=== PATIENT | male | born 1945 | race Caucasian/White ===

== ENCOUNTER 2019-09-13 07:16 | Inpatient (IN) | payer MEDICARE, OTHER ==
[~2019-09-13] VITALS: Ht 182.9 cm; Wt 136.6 kg
[2019-09-13] MEDS ORDERED: SODIUM CHLORIDE 0.9% 1,000 ML IV ONE ×2 (07:47→13:45)
[2019-09-13 07:51] LABS: GLUCOSE,POINT OF CARE 185 MG/DL (70-110)
[2019-09-13] MEDS ORDERED: ACETAMINOPHEN 500 MG TABLET PO ONE (08:00)
[2019-09-13] MEDS ORDERED: ONDANSETRON HCL 4 MG/2 ML VIAL IVP ONE (08:00)
[2019-09-13 08:53] LABS: BASOPHILS % (AUTO) 0.4 % (0.0-2.0); EOSINOPHILS % (AUTO) 0.1 % (1.0-6.0); HEMATOCRIT 39.4 % (41-53); HEMOGLOBIN 12.1 g/dL (13.5-17.5); LYMPHOCYTES # (AUTO) 0.3 K/uL (1.0-4.8); LYMPHOCYTES % (AUTO) 1.6 % (22.0-44.0); MEAN CORPUSCULAR HEMOGLOBIN 22.5 pg (26.0-34.0); MEAN CORPUSCULAR HGB CONC 30.8 G/dL (31.0-37.0); MEAN CORPUSCULAR VOLUME 73 fL (80-100); MONOCYTES # (AUTO) 0.6 K/uL (0.1-1.0); MONOCYTES % (AUTO) 3.9 % (2.0-9.0); NEUTROPHILS # (AUTO) 15.5 K/uL (1.8-7.7); PLATELET COUNT (AUTO) 165 K/uL (150-450); RED BLOOD CELL COUNT(AUTO) 5.38 MIL/uL (4.50-5.90)
[2019-09-13 09:15] LABS: APPEARANCE,URINE CLEAR (CLEAR); GLUCOSE, URINE (UA) 100 mg/dL (NEGATIVE); KETONES,URINE 15 mg/dL (NEGATIVE); LEUKOCYTE ESTERASE ,URINE NEGATIVE (NEGATIVE); NITRATE,URINE NEGATIVE (NEGATIVE); OCCULT BLOOD,URINE NEGATIVE (NEGATIVE); PROTEIN,URINE SEE CONFIRM (NEGATIVE)
[2019-09-13 09:16] LABS: BILIRUBIN,URINE PRELIM. POSITIVE (NEGATIVE)
[2019-09-13 09:17] LABS: INR 1.2 (0.9-1.1); PROTHROMBIN TIME 11.9 SEC (9.4-11.6)
[2019-09-13 09:26] LABS: ALBUMIN 3.8 g/dL (3.4-5.0); BACTERIA,URINE None Seen /HPF (None Seen); BILIRUBIN,TOTAL 0.6 mg/dL (0.1-1.0); CALCIUM, TOTAL 8.5 mg/dL (8.8-10.5); CREATININE 1.25 mg/dL (0.60-1.30); POTASSIUM 3.6 mmol/L (3.5-5.1); RBC,URINE None Seen /HPF (0-2); SQUAMOUS EPITHELIAL CELL,UR Few /LPF (None Seen); SULFOSALICYLIC ACID,URINE 1+ (Negative); TOTAL PROTEIN, SERUM 8.3 g/dL (6.4-8.2); WBC,URINE 0-2 /HPF (0-5)
[2019-09-13 09:34] LABS: INFLUENZA TYPE A NEGATIVE FOR TYPE A (NEGATIVE); INFLUENZA TYPE B NEGATIVE FOR TYPE B (NEGATIVE)
[2019-09-13] MEDS ORDERED: ONDANSETRON HCL 4 MG/2 ML VIAL IVP PRN (13:30)
[2019-09-13] MEDS ORDERED: ACETAMINOPHEN 325 MG TABLET PO PRN (13:30)
[2019-09-13] MEDS ORDERED: DEXTROSE 50%-WATER 25 GM/50 ML SYRINGE IVP PRN (13:45)
[2019-09-13] MEDS: ACETAMINOPHEN 325 MG TABLET PO PRN ×2 (14:30→21:03)
[2019-09-13] MEDS: CefTRIAXone 1 GM/DEXTROSE 50 ML IV SCH (14:52)
[2019-09-13] MEDS: AZITHROMYCIN 500 MG/NS 250 ML IV SCH (15:14)
[2019-09-13] MEDS: HEPARIN SODIUM,PORCINE 5,000 UNITS/ML VIAL SQ SCH ×2 (15:15→23:34)
[2019-09-13 17:02] VITALS: BP 151/95
[2019-09-13 21:01] VITALS: BP 152/83
[2019-09-13] MEDS: DOCUSATE SODIUM 100 MG CAPSULE PO SCH (21:02)
[2019-09-13] MEDS: INSULIN LISPRO 100 UNITS/ML SQ PRN (22:19)
[2019-09-14] VITALS (7 sets, daily range): BP systolic 119–153; BP diastolic 73–100
[2019-09-14] MEDS: ACETAMINOPHEN 325 MG TABLET PO PRN ×2 (05:13→23:16)
[2019-09-14 06:07] LABS: GLUCOMETER DEV NAME(LOC) 5S.2A; GLUCOSE,POINT OF CARE 217 MG/DL (70-110)
[2019-09-14 06:07] LABS: GLUCOMETER DEV NAME(LOC) 5S.2A; GLUCOSE,POINT OF CARE 189 MG/DL (70-110)
[2019-09-14] MEDS: DOCUSATE SODIUM 100 MG CAPSULE PO SCH ×2 (08:24→20:10)
[2019-09-14] MEDS: HEPARIN SODIUM,PORCINE 5,000 UNITS/ML VIAL SQ SCH ×3 (08:24→23:16)
[2019-09-14] MEDS: FAMOTIDINE 20 MG TABLET PO SCH (08:24)
[2019-09-14 09:30] LABS: BASOPHILS % (AUTO) 0.2 % (0.0-2.0); EOSINOPHILS % (AUTO) 0 % (1.0-6.0); HEMATOCRIT 34.7 % (41-53); HEMOGLOBIN 10.7 g/dL (13.5-17.5); LYMPHOCYTES # (AUTO) 0.4 K/uL (1.0-4.8); LYMPHOCYTES % (AUTO) 3.3 % (22.0-44.0); MEAN CORPUSCULAR HEMOGLOBIN 22.4 pg (26.0-34.0); MEAN CORPUSCULAR HGB CONC 30.9 G/dL (31.0-37.0); MEAN CORPUSCULAR VOLUME 73 fL (80-100); MONOCYTES # (AUTO) 0.2 K/uL (0.1-1.0); MONOCYTES % (AUTO) 2.1 % (2.0-9.0); PLATELET COUNT (AUTO) 165 K/uL (150-450); RED BLOOD CELL COUNT(AUTO) 4.77 MIL/uL (4.50-5.90); RED CELL DISTRIBUTION WIDTH 18.9 % (11.5-14.5)
[2019-09-14 09:36] LABS: NEUTROPHILS % (AUTO) 94.4 % (40.0-70.0)
[2019-09-14 09:51] LABS: CALCIUM, TOTAL 7.8 mg/dL (8.8-10.5); CREATININE 1.33 mg/dL (0.60-1.30); POTASSIUM 3.1 mmol/L (3.5-5.1)
[2019-09-14] MEDS ORDERED: SODIUM CHLORIDE 0.9% 1,000 ML IV ONE (10:45)
[2019-09-14] MEDS ORDERED: POTASSIUM CHLORIDE 20 MEQ ER TABLET PO ONE (10:45)
[2019-09-14] MEDS: INSULIN LISPRO 100 UNITS/ML SQ PRN ×2 (12:50→20:21)
[2019-09-14] MEDS: CefTRIAXone 1 GM/DEXTROSE 50 ML IV SCH (14:04)
[2019-09-14] MEDS: AZITHROMYCIN 500 MG/NS 250 ML IV SCH (14:52)
[2019-09-14 16:41] LABS: GLUCOMETER DEV NAME(LOC) 5S.2A; GLUCOSE,POINT OF CARE 157 MG/DL (70-110)
[2019-09-14 17:11] LABS: GLUCOMETER DEV NAME(LOC) 5S.1; GLUCOSE,POINT OF CARE 97 MG/DL (70-110)
[2019-09-14 17:11] LABS: GLUCOMETER DEV NAME(LOC) 5S.1; GLUCOSE,POINT OF CARE 148 MG/DL (70-110)
[2019-09-15 04:00] VITALS: BP 157/83
[2019-09-15 06:42] LABS: ANION GAP 7 mmol/L (8-16); CARBON DIOXIDE 28 mmol/L (22-29); CHLORIDE 103 mmol/L (98-107); CREATININE 1.16 mg/dL (0.60-1.30); GLUCOSE,RANDOM 99 mg/dL (70-110); POTASSIUM 3.8 mmol/L (3.5-5.1); SODIUM SERUM 138 mmol/L (136-145); UREA NITROGEN, BLOOD 29 mg/dL (7-18)
[2019-09-15 06:46] LABS: GLOMERULAR FILTR. RATE CALC > 60 mL/min (>60)
[2019-09-15 07:50] VITALS: BP 152/105
[2019-09-15] MEDS: HEPARIN SODIUM,PORCINE 5,000 UNITS/ML VIAL SQ SCH ×2 (08:55→15:24)
[2019-09-15] MEDS: DOCUSATE SODIUM 100 MG CAPSULE PO SCH (08:56)
[2019-09-15] MEDS: FAMOTIDINE 20 MG TABLET PO SCH (08:56)
[2019-09-15 09:04] VITALS: BP 135/78
[2019-09-15] MEDS ORDERED: CARVEDILOL 6.25 MG TABLET PO SCH (11:15)
[2019-09-15 12:07] VITALS: BP 146/100
[2019-09-15 12:31] LABS: GLUCOMETER DEV NAME(LOC) 5S.1; GLUCOSE,POINT OF CARE 109 MG/DL (70-110)
[2019-09-15 12:31] LABS: GLUCOMETER DEV NAME(LOC) 5S.1; GLUCOSE,POINT OF CARE 139 MG/DL (70-110)
[2019-09-15] MEDS ORDERED: CefTRIAXone SODIUM 2 GM in DEXTROSE 5%-WATER 50 ML IV SCH (14:00)
[2019-09-15] MEDS: ACETAMINOPHEN 325 MG TABLET PO PRN (14:22)
[2019-09-15] MEDS ORDERED: SODIUM CHLORIDE 0.9% 100 ML ONE (15:09)
[2019-09-15] MEDS: AZITHROMYCIN 500 MG/NS 250 ML IV SCH (15:18)
[2019-09-15 17:36] LABS: GLUCOMETER DEV NAME(LOC) 5S.1; GLUCOSE,POINT OF CARE 172 MG/DL (70-110)
[2019-09-15] MEDS: INSULIN LISPRO 100 UNITS/ML SQ PRN (18:03)
[2019-09-15 18:42] VITALS: BP 140/80
[2019-09-15] MEDS ORDERED: MUPIROCIN CALCIUM 2% 22 GM OINTMENT NASAL SCH (21:00)
[2019-09-15 21:15] LABS: GLUCOMETER DEV NAME(LOC) 5S.2A; GLUCOSE,POINT OF CARE 161 MG/DL (70-110)
== END 2019-09-15 20:28 | disposition left against medical advice (07) | DRG 871 ==
LOC: EMS 07:20 → EDBD 07:20 → 5N 15:54
PROVIDERS: ADMIT Internal Medicine; ATTEND Internal Medicine
DX: A41.9 Sepsis, unspecified organism (principal); G92 Toxic encephalopathy; Z68.41 Body mass index [BMI] 40.0-44.9, adult; L03.116 Cellulitis of left lower limb; E66.01 Morbid (severe) obesity due to excess calories; F03.90 Unspecified dementia, unspecified severity, without behavioral disturbance, psychotic disturbance, mood disturbance, and anxiety; E86.0 Dehydration; E11.9 Type 2 diabetes mellitus without complications; I48.91 Unspecified atrial fibrillation; B95.62 Methicillin resistant Staphylococcus aureus infection as the cause of diseases classified elsewhere; Z53.29 Procedure and treatment not carried out because of patient's decision for other reasons; Z83.3 Family history of diabetes mellitus
CPT/HCPCS: 51702; 74176; 83605; 87040; 87081; 87205; 87804; 93005; 94660; 97163; J0456; J0696; J1644; J2405; J7030; J7050; J7060